=== PATIENT | male | born 1970 | race Caucasian/White ===

== ENCOUNTER 2021-06-21 14:13 | Emergency (ER) | payer OTHER ==
[~2021-06-21] VITALS: Ht 185.5 cm; Wt 111.0 kg
--- NOTE | 2021-06-21 14:38 | ED Respiratory ---
General Chief Complaint: COVID19 Suspect/Confirmed Stated Complaint: COVD+ 8 DAYS AGO,FEVER,GORDILLO,ABD PAIN,COUGH Nursing Triage Note: PT AMB TO [facility] 9 WITH COMPLAINT OF COUGH, NAUSEA, FEVER, BODY ACHES. TESTED POSITIVE FOR COVID 8 DAYS AGO. Source: patient Exam Limitations: no limitations (SATHYA BALDWIN MD) History of Present Illness Date Seen by Provider: Jun 21, 2021 Time Seen by Provider: 14:36 Timing/Duration: week Severity: moderate Prior Episodes/Possible Cause: illness exposure Modifying Factors: Worse With Activity, Worse With Coughing; Improves With Rest Associated Symptoms: cough, headache, lightheadedness, muscle aches, shortness of breath (SATHYA BALDWIN MD) Initial Comments Patient is a 51-year-old male who presents ED with shortness of breath, cough, weakness and fatigue. Patient states he tested positive for Covid 8 days ago. He reports worsening symptoms over the past 8 days. Reports a wet productive cough with shortness of breath with a cough. Denies any specific chest pain or abdominal pain. No known cardiac history history of COPD or smoking. Reports fever over the past 2 days. Febrile on arrival. Slightly tachycardic. He states he feels dry and not able to eat or drink and feels dehydrated. Denies of any current vomiting or diarrhea. Few episodes of diarrhea last week. Pat ient reports generalized head discomfort. Patient has not up-to-date on his Covid vaccine (ANGY SHAW) Allergies and Home Medications Allergies Coded Allergies: No Known Drug Allergies (Unverified , 06/21/21) Patient Home Medication List Home Medication List Reviewed: Yes (SATHYA BALDWIN MD) Albuterol Sulfate (Proair Hfa) 1 Puff Puff, 2 PUFF IH Q4H Prescribed by: ROM JANE on 06/21/21 1631 Dexamethasone (Dexamethasone) 6 Mg Tablet, 6 MG PO DAILY Prescribed by: ROM JANE on 06/21/21 1632 Doxycycline Monohydrate (Doxycycline Monohydrate) 100 Mg Capsule, 100 MG PO BID Prescribed by: ROM JANE on 06/21/21 1631 Review of Systems Review of Systems Constitutional: see HPI (SATHYA BALDWIN MD) Constitutional: No chills, No diaphoresis, No dizziness, No fever Respiratory: cough; No dyspnea on exertion Genitourinary: No dysuria, No frequency (ANGY SHAW) All Other Systems Reviewed Negative Unless Noted: Yes (SATHYA BALDWIN MD) Negative Unless Noted: Yes (ANGY SHAW) Past Ocejgmn-Huulge-[place] Hx Patient Social History Tobacco Use?: No Use of E-Cig and/or Vaping dev: No Substance use?: No Alcohol Use?: No Pt feels they are or have been: No (SATHYA BALDWIN MD) Immunizations Up To Date Influenza Vaccine Up-to-Date: No; Not Current (SATHYA BALDWIN MD) Physical Exam Vital Signs - First Documented 06/21/21 14:20 Temp 39.0 Pulse 104 Resp 22 B/P (MAP) 143/92 (109) Pulse Ox 94 O2 Delivery Room Air (ANGY SHAW) Capillary Refill : Less Than 3 Seconds (SATHYA BALDWIN MD) Height: '" Weight: lbs. oz. kg; 32.00 BMI Method: General Appearance: WD/WN Eyes: Right Eye Conjunctivae Pale; Bilateral Eye Normal Inspection, Bilateral Eye PERRL, Bilateral Eye EOMI HEENT: pharynx normal Neck: full range of motion, supple Respiratory: lungs clear, normal breath sounds, no respiratory distress, no accessory muscle use Cardiovascular: regular rate, rhythm Gastrointestinal: soft Extremities: normal range of motion, non-tender, normal inspection, no pedal edema, no calf tenderness Neurologic/Psychiatric: alert, normal mood/affect, oriented x 3 Skin: normal color, warm/dry (SATHYA BALDWIN MD) General Appearance: WD/WN, no apparent distress Cardiovascular: tachycardia (ANGY SHAW) Progress/Results/Core Measures Suspected Sepsis SIRS Temperature: Pulse: 104 Respiratory Rate: 22 Laboratory Tests 06/21/21 15:18: White Blood Count 8.5 Blood Pressure 143 /92 Mean: 109 Laboratory Tests 06/21/21 15:18: Creatinine 0.88, Platelet Count 162, Total Bilirubin 1.0 (SATHYA BALDWIN MD) SIRS Laboratory Tests 06/21/21 15:18: White Blood Count 8.5 Laboratory Tests 06/21/21 15:18: Creatinine 0.88, Platelet Count 162, Total Bilirubin 1.0 (ANGY SHAW) Results/Orders Lab Results Laboratory Tests Test 06/21/21 15:18 Range/Units White Blood Count 8.5 4.3-11.0 10^3/uL Red Blood Count 5.34 4.30-5.52 10^6/uL Hemoglobin 15.3 13.3-17.7 g/dL Hematocrit 45 40-54 % Mean Corpuscular Volume 84 80-99 fL Mean Corpuscular Hemoglobin 29 25-34 pg Mean Corpuscular Hemoglobin Concent 34 32-36 g/dL Red Cell Distribution Width 12.1 10.0-14.5 % Platelet Count 162 130-400 10^3/uL Mean Platelet Volume 10.5 9.0-12.2 fL Immature Granulocyte % (Auto) 0 % Neutrophils (%) (Auto) 88 H 42-75 % Lymphocytes (%) (Auto) 5 L 12-44 % Monocytes (%) (Auto) 7 0-12 % Eosinophils (%) (Auto) 0 0-10 % Basophils (%) (Auto) 0 0-10 % Neutrophils # (Auto) 7.4 1.8-7.8 X 10^3 Lymphocytes # (Auto) 0.4 L 1.0-4.0 X 10^3 Monocytes # (Auto) 0.6 0.0-1.0 X 10^3 Eosinophils # (Auto) 0.0 0.0-0.3 10^3/uL Basophils # (Auto) 0.0 0.0-0.1 10^3/uL Immature Granulocyte # (Auto) 0.0 0.0-0.1 10^3/uL Neutrophils % (Manual) 86 % Lymphocytes % (Manual) 5 % Monocytes % (Manual) 9 % Eosinophils % (Manual) 0 % Basophils % (Manual) 0 % Band Neutrophils 0 % Blood Morphology Comment NORMAL Sodium Level 135 135-145 MMOL/L Potassium Level 3.8 3.6-5.0 MMOL/L Chloride Level 102 98-107 MMOL/L Carbon Dioxide Level 20 L 21-32 MMOL/L Anion Gap 13 5-14 MMOL/L Blood Urea Nitrogen 16 7-18 MG/DL Creatinine 0.88 0.60-1.30 MG/DL Estimat Glomerular Filtration Rate 103 BUN/Creatinine Ratio 18 Glucose Level 118 H 70-105 MG/DL Calcium Level 9.2 8.5-10.1 MG/DL Corrected Calcium 9.1 8.5-10.1 MG/DL Total Bilirubin 1.0 0.1-1.0 MG/DL Aspartate Amino Transf (AST/SGOT) 34 5-34 U/L Alanine Aminotransferase (ALT/SGPT) 36 0-55 U/L Alkaline Phosphatase 101 40-136 U/L Total Protein 7.8 6.4-8.2 GM/DL Albumin 4.1 3.2-4.5 GM/DL (ANGY SHAW) My Orders Orders - ANGY SHAW Cbc And Manual Diff (06/21/21 15:02) Comprehensive Metabolic Panel (06/21/21 15:02) Ns Iv 1000 Ml (Sodium Chloride 0.9%) (06/21/21 15:02) Chest 1 View, Ap/Pa Only (06/21/21 15:02) Ibuprofen Tablet (Motrin Tablet) (06/21/21 15:15) (ANGY SHAW) Medications Given in ED Current Medications Medications Dose Ordered Sig/Lacho Route Start Time Stop Time Status Last Admin Dose Admin Ibuprofen 800 mg ONCE ONCE PO 06/21/21 15:15 06/21/21 15:16 DC 06/21/21 15:10 800 MG (ANGY SHAW) Vital Signs/I&O 06/21/21 06/21/21 14:20 14:20 Temp 39.0 Pulse 104 Resp 22 B/P (MAP) 143/92 (109) Pulse Ox 94 O2 Delivery Room Air Room Air (ANGY SHAW) Vital Signs/I&O Capillary Refill : Less Than 3 Seconds (SATHYA BALDWIN MD) Blood Pressure Mean: 109 Departure Communication (Admissions) Patient diagnosed with Covid 8 days ago. He reports symptoms started 8 days ago. Patient is otherwise healthy. Patient oxygen on room air 92 to 93%. Dropped down to as low as 89% with ambulation but was asymptomatic. Chest x-ray concerning for pneumonia. Patient has been running intermittent fever. Reports worsening cough but denies feeling short of breath at this time. Was given a small amount of IV fluids with improvement of symptoms. Lab work was otherwise unremarkable. No known cardiac history. Does not appear toxic. Will discharge with doxycycline to treat any secondary infections prophylactically. Will discharge with Decadron. Albuterol inhaler. Did contact [facility] to discuss oxygen secondary to the intermittent low oxygen level. Patient refused at this time. He states he feels much better at this time. Discussed quarantine at home. Did provide outpatient resources and discussed pulse ox to monitor oxygen level. If any worsening symptoms return back to ED for further evaluation. Patient in no acute distress. Discuss the importance of hydration and monitoring oxygen level. Improvement of vital signs. (ANGY SHAW) Impression Primary Impression: COVID-19 Additional Impression: Pneumonia Qualified Codes: J18.9 - Pneumonia, unspecified organism Disposition: 01 HOME, SELF-CARE Condition: Stable Departure-Patient Inst. Decision time for Depature: 16:29 (ANGY SHAW) Referrals: NO,LOCAL PHYSICIAN (PCP/Family) Primary Care Physician Patient Instructions: COVID-19 (DC) Scripts Dexamethasone (Dexamethasone) 6 Mg Tablet 6 MG PO DAILY for 10 Days, #10 TAB Prov: ANGY SHAW 06/21/21 Albuterol Sulfate (PROAIR HFA) 1 Puff Puff 2 PUFF IH Q4H, #1 EA 1 PUFF = 90 MCG Prov: ANGY SHAW 06/21/21 Doxycycline Monohydrate (Doxycycline Monohydrate) 100 Mg Capsule 100 MG PO BID for 7 Days, #14 CAP Prov: ANGY SHAW 06/21/21 SATHYA BALDWIN MD Jun 21, 2021 14:38 ANGY SHAW Jun 21, 2021 15:08
[2021-06-21] MEDS ORDERED: NS IV 1000 ML 1,000 ML IV SCH (14:45)
[2021-06-21] MEDS ORDERED: NS IV 1000 ML 1,000 ML IV STA (15:02)
[2021-06-21] MEDS ORDERED: IBUPROFEN 800 MG (MOTRIN) TAB PO ONE (15:15)
[2021-06-21 15:28] LABS: BASOPHILS % (AUTO) 0 % (0-10); EOSINOPHILS % (AUTO) 0 % (0-10); HEMATOCRIT 45 % (40-54); HEMOGLOBIN 15.3 g/dL (13.3-17.7); LYMPHOCYTES # (AUTO) 0.4 X 10^3 (1.0-4.0); LYMPHOCYTES % (AUTO) 5 % (12-44); MEAN CORPUSCULAR HEMOGLOBIN 29 pg (25-34); MEAN CORPUSCULAR HGB CONC 34 g/dL (32-36); MEAN CORPUSCULAR VOLUME 84 fL (80-99); MEAN PLATELET VOLUME 10.5 fL (9.0-12.2); MONOCYTES # (AUTO) 0.6 X 10^3 (0.0-1.0); MONOCYTES % (AUTO) 7 % (0-12); NEUTROPHILS # (AUTO) 7.4 X 10^3 (1.8-7.8); NEUTROPHILS % (AUTO) 88 % (42-75); PLATELET COUNT 162 10^3/uL (130-400); WHITE BLOOD COUNT 8.5 10^3/uL (4.3-11.0)
--- NOTE | 2021-06-21 15:33 | Diagnostic Imaging Report ---
INDICATION: Cough with nausea and body aches. TIME OF EXAM: 03:28 p.m. COMPARISON: No prior studies are available for comparison. FINDINGS: Heart size is normal. There are patchy infiltrates in the right perihilar region and left basilar region consistent with pneumonia. There is no effusion or pneumothorax. IMPRESSION: Bilateral infiltrates consistent with pneumonia. Dictated by: Dictated on workstation # [id number]
[2021-06-21 15:37] LABS: ALBUMIN 4.1 GM/DL (3.2-4.5); POTASSIUM 3.8 MMOL/L (3.6-5.0)
[2021-06-21 15:38] LABS: CALCIUM 9.2 MG/DL (8.5-10.1)
[2021-06-21 15:39] LABS: TOTAL PROTEIN 7.8 GM/DL (6.4-8.2)
[2021-06-21 15:43] LABS: CREATININE SERUM 0.88 MG/DL (0.60-1.30)
[2021-06-21 15:49] LABS: BAND NEUTROPHILS 0 %; LYMPHOCYTES % (MANUAL) 5 %; NEUTROPHILS % (MANUAL) 86 %
[2021-06-21 15:50] LABS: BASOPHILS % (MANUAL) 0 %; EOSINOPHILS % (MANUAL) 0 %; MONOCYTES % (MANUAL) 9 %; RBC MORPH NORMAL
[2021-06-21] MEDS ORDERED: RT-ALBUINH IH (16:31)
[2021-06-21] MEDS ORDERED: DOXY-311 PO (16:31)
[2021-06-21] MEDS ORDERED: DEXA6TAB PO (16:32)
[2021-06-21 16:40] VITALS: BP 143/92
== END 2021-06-21 16:40 | disposition home or self-care (01) ==
LOC: ER 14:17
DX: U07.1 COVID-19 (principal); J18.9 Pneumonia, unspecified organism
CPT/HCPCS: 36415; 71045; 80053; 85007; 85027; 93005